=== PATIENT | female | born 1935 | race Caucasian/White ===

== ENCOUNTER 2018-12-26 16:35 | Inpatient (IN) | payer MEDICARE, OTHER ==
[~2018-12-26] VITALS: Ht 154.9 cm; Wt 47.6 kg
[2018-12-26 17:00] LABS: HEMATOCRIT 39.6 % (36-46); HEMOGLOBIN 12.7 g/dL (12.0-16.0); MEAN CORPUSCULAR HEMOGLOBIN 30.9 pg (26.0-34.0); MEAN CORPUSCULAR VOLUME 97 fL (80-100); PLATELET COUNT (AUTO) 338 K/uL (150-450); RED CELL DISTRIBUTION WIDTH 14.2 % (11.5-14.5)
[2018-12-26] MEDS ORDERED: ASPI-1182 PO (17:03)
[2018-12-26] MEDS ORDERED: SIMV-260 PO (17:04)
[2018-12-26] MEDS ORDERED: ATEN25TA PO (17:04)
[2018-12-26] MEDS ORDERED: RIVA15T PO (17:04)
[2018-12-26] MEDS ORDERED: METF-960 PO (17:04)
[2018-12-26] MEDS ORDERED: LORA-999 PO (17:04)
[2018-12-26 17:09] LABS: CALCIUM, TOTAL 9.3 mg/dL (8.8-10.5); CREATININE 1.1 mg/dL (0.60-1.30); POTASSIUM 3.5 mmol/L (3.5-5.1)
[2018-12-26 17:15] LABS: ALBUMIN 3.2 g/dL (3.4-5.0); BILIRUBIN,TOTAL 0.5 mg/dL (0.1-1.0)
[2018-12-26 17:18] LABS: INR 1.1 (0.9-1.1)
[2018-12-26 17:45] LABS: BAND NEUTROPHILS % (MANUAL) 1 % (0-5); BASOPHILS % (MANUAL) 1 % (0-2); EOSINOPHILS % (MANUAL) 1 % (1-6); LYMPHOCYTES % (MANUAL) 45 % (22-44); MONOCYTES % (MANUAL) 3 % (2-9); REACTIVE LYMPHOCYTES 27 % (0-0); SEGMENTED NEUTROPHILS % 22 % (40-70)
[2018-12-26 17:47] LABS: PLATELET MORPHOLOGY COMMENT GIANT PLTS PRESENT; WBC MORPHOLOGY TOXIC GRANULATION
[2018-12-26] MEDS ORDERED: IOVERSOL 350 MG/ML 100 ML VIAL ONE (17:52)
[2018-12-26] MEDS ORDERED: MORPHINE SULFATE 2 MG/ML SYRINGE IVP ONE (18:30)
[2018-12-26] MEDS ORDERED: ACETAMINOPHEN 325 MG TABLET PO PRN (18:45)
[2018-12-26] MEDS ORDERED: 0.9% SODIUM CHLORIDE 10 ML SYRINGE IVP PRN ×2 (18:45→23:00)
[2018-12-26] MEDS ORDERED: ONDANSETRON HCL 4 MG/2 ML VIAL IVP PRN ×2 (18:45→23:00)
[2018-12-26] MEDS ORDERED: MORPHINE SULFATE 4 MG/ML SYRINGE IVP PRN (20:30)
[2018-12-26 20:35] VITALS: BP 114/59
[2018-12-26] MEDS: SODIUM CHLORIDE 0.45% 1,000 ML IV SCH (23:30)
[2018-12-27 00:05] VITALS: BP 114/60
[2018-12-27] MEDS: MORPHINE SULFATE 2 MG/ML SYRINGE IVP PRN ×2 (00:31→05:10)
[2018-12-27] MEDS: PIPERACILLIN/TAZO 3.375 GM/D5W 50 ML IV SCH ×3 (01:05→11:27)
[2018-12-27] MEDS ORDERED: SODIUM CHLORIDE 0.9% 250 ML IV ONE (01:44)
[2018-12-27 05:05] VITALS: BP 109/54
[2018-12-27 06:20] LABS: APPEARANCE,URINE CLOUDY (CLEAR); BILIRUBIN,URINE NEGATIVE (NEGATIVE); GLUCOSE, URINE (UA) NEGATIVE (NEGATIVE); KETONES,URINE NEGATIVE (NEGATIVE); LEUKOCYTE ESTERASE ,URINE SMALL (NEGATIVE); NITRATE,URINE NEGATIVE (NEGATIVE); OCCULT BLOOD,URINE NEGATIVE (NEGATIVE); PH,URINE 5.5 (5.0-8.0); PROTEIN,URINE NEGATIVE (NEGATIVE); UROBILINOGEN,URINE 0.2 mg/dL (<=1.0)
[2018-12-27 06:44] LABS: BACTERIA,URINE None Seen /HPF (None Seen); RBC,URINE 0-2 /HPF (0-2); SQUAMOUS EPITHELIAL CELL,UR Few /LPF (None Seen)
[2018-12-27 07:25] VITALS: BP 128/52
[2018-12-27] MEDS: SODIUM CHLORIDE 0.45% 1,000 ML IV SCH ×2 (08:27→18:24)
[2018-12-27] MEDS ORDERED: FAMOTIDINE 10 MG/ML 2 ML VIAL IVP SCH (09:00)
[2018-12-27 09:34] LABS: HEMATOCRIT 38.3 % (36-46); HEMOGLOBIN 12.2 g/dL (12.0-16.0); MEAN CORPUSCULAR HGB CONC 31.8 G/dL (31.0-37.0); MEAN CORPUSCULAR VOLUME 98 fL (80-100); PLATELET COUNT (AUTO) 322 K/uL (150-450); RED BLOOD CELL COUNT(AUTO) 3.93 MIL/uL (4.00-5.20); RED CELL DISTRIBUTION WIDTH 14.1 % (11.5-14.5)
[2018-12-27 09:43] LABS: CALCIUM, TOTAL 8.5 mg/dL (8.8-10.5); CREATININE 1.07 mg/dL (0.60-1.30); POTASSIUM 3.3 mmol/L (3.5-5.1)
[2018-12-27 09:53] LABS: BAND NEUTROPHILS % (MANUAL) 0 % (0-5)
[2018-12-27 10:26] LABS: LYMPHOCYTES % (MANUAL) 60 % (22-44); MONOCYTES % (MANUAL) 3 % (2-9); REACTIVE LYMPHOCYTES 8 % (0-0); SEGMENTED NEUTROPHILS % 29 % (40-70)
[2018-12-27 10:27] LABS: WBC MORPHOLOGY SMUDGE CELLS PRESENT
[2018-12-27 11:38] VITALS: BP 120/64
[2018-12-27] MEDS ORDERED: LORazepam 2 MG/ML VIAL IVP PRN (12:30)
[2018-12-27] MEDS ORDERED: MORPHINE SULFATE 2 MG/ML SYRINGE IVP PRN (12:30)
[2018-12-27 16:00] VITALS: BP 133/67
[2018-12-27] MEDS: SCOPOLAMINE HYDROBROMIDE 1.5 MG PATCH TD SCH (17:04)
[2018-12-27 19:30] VITALS: BP 129/66
[2018-12-27] MEDS: FAMOTIDINE 10 MG/ML 2 ML VIAL IVP SCH (21:33)
[2018-12-28] VITALS (7 sets, daily range): BP systolic 134–161; BP diastolic 59–89
[2018-12-28] MEDS: SODIUM CHLORIDE 0.45% 1,000 ML IV SCH ×3 (05:41→18:36)
[2018-12-28] MEDS: ASPIRIN 81 MG EC TABLET PO SCH (09:53)
[2018-12-28] MEDS: FAMOTIDINE 10 MG/ML 2 ML VIAL IVP SCH ×2 (09:54→20:24)
[2018-12-29 04:00] VITALS: BP 160/86
[2018-12-29] MEDS: SODIUM CHLORIDE 0.45% 1,000 ML IV SCH ×2 (04:56→22:18)
[2018-12-29 07:55] VITALS: BP 144/75
[2018-12-29] MEDS: FAMOTIDINE 10 MG/ML 2 ML VIAL IVP SCH ×2 (09:26→20:30)
[2018-12-29] MEDS: ASPIRIN 81 MG EC TABLET PO SCH (09:26)
[2018-12-29 11:15] VITALS: BP 157/88
[2018-12-29] MEDS ORDERED: *NON-FORMULARY MED [ENTER DRUG, DOSE, FREQ IN COMMENTS] CLINICAL ONE (15:15)
[2018-12-29 15:39] VITALS: BP 134/76
[2018-12-29] MEDS ORDERED: HUMIRA 40 MG SQ SCH (16:00)
[2018-12-29 19:38] VITALS: BP 139/69
[2018-12-29 23:55] VITALS: BP 143/66
[2018-12-30 05:33] VITALS: BP 139/70
[2018-12-30 07:25] VITALS: BP 127/65
[2018-12-30] MEDS: FAMOTIDINE 10 MG/ML 2 ML VIAL IVP SCH (09:04)
[2018-12-30] MEDS: SCOPOLAMINE HYDROBROMIDE 1.5 MG PATCH TD SCH (09:04)
[2018-12-30] MEDS: ASPIRIN 81 MG EC TABLET PO SCH (09:04)
[2018-12-30] MEDS: SODIUM CHLORIDE 0.45% 1,000 ML IV SCH (09:05)
[2018-12-30 11:42] VITALS: BP 121/61
[2018-12-30] MEDS ORDERED: SCOP1PAT11 TD (11:56)
== END 2018-12-30 14:05 | disposition hospice, home (50) | DRG 871 ==
LOC: EMS 16:36 → 4E 18:38
PROVIDERS: ADMIT Internal Medicine; ATTEND Internal Medicine
DX: A41.9 Sepsis, unspecified organism (principal); I61.8 Other nontraumatic intracerebral hemorrhage; G93.41 Metabolic encephalopathy; E87.0 Hyperosmolality and hypernatremia; N39.0 Urinary tract infection, site not specified; E86.0 Dehydration; Z86.73 Personal history of transient ischemic attack (TIA), and cerebral infarction without residual deficits; I48.91 Unspecified atrial fibrillation; I10 Essential (primary) hypertension; E11.9 Type 2 diabetes mellitus without complications; Z51.5 Encounter for palliative care
CPT/HCPCS: 51702; 86850; 86900; 86901; 87040; 87086; 92610; 93005; 97162; 97530; 99291; 99292; G0378; J2270; J2543; J3490; J7050